=== PATIENT | female | born 1960 | race Caucasian/White ===

== ENCOUNTER → 2021-01-24 14:30 | Outpatient (CLI) | payer MEDICARE ==
[2021-01-24 15:38] LABS: EOSINOPHILS 2.1 % (0-7); HEMATOCRIT 40.7 % (36.0-48.0); HEMOGLOBIN 13.6 g/dL (12-16); LYMPHOCYTES 24.5 % (15-50); MCH 29.5 pg (26.0-34.0); MCHC 33.5 g/dL (31.0-37.0); MONOCYTES 6.8 % (2-11); NEUTROPHILS 65.6 % (40-80); PLATELET COUNT 379 10x3/uL (130-400); RBC 4.62 10x6/uL (4.00-5.40); RDW 13.2 % (11.5-14.5); WBC 14.3 10x3/uL (4.8-10.8)
[2021-01-24 15:41] LABS: ANION GAP 12.7 mmol/L (8-16); CALCIUM 8.6 mg/dL (8.5-10.1); CARBON DIOXIDE 27.5 mmol/L (21.0-32.0); CREATININE - SERUM 1.1 mg/dL (0.6-1.3); POTASSIUM - SERUM 4.2 mmol/L (3.5-5.1)
== END | disposition home or self-care (01) ==
LOC: D.US 14:00
PROVIDERS: ATTEND Nurse Practitioner Family
DX: R60.0 Localized edema (principal); E87.1 Hypo-osmolality and hyponatremia; I10 Essential (primary) hypertension